=== PATIENT | female | born 1935 | race Asian ===

== ENCOUNTER 2016-06-03 22:24 | Emergency (ER) | payer MEDICARE, OTHER ==
[~2016-06-03] VITALS: Ht 152.4 cm; Wt 50.0 kg
[~2016-06-03 22:24] MED LIST: AMLO-511 PO; ASPI81 PO; ATOR20TA86 PO; CALC500T62 PO; GABA-531 PO; ISOS30TA6 PO; LOSA25TA21 PO; MECL12.585 PO; MULT-1251 PO; NITR.4 SL; OMEP20 PO; RISE5 PO
[2016-06-03] MEDS ORDERED: METO25 PO (23:07)
[2016-06-03] MEDS ORDERED: BRIM15OS OU (23:07)
[2016-06-03] MEDS ORDERED: MOXIOS OU (23:07)
[2016-06-03] MEDS ORDERED: PREDAOS OU (23:07)
[2016-06-03 23:40] LABS: BASOPHILS % (AUTO) 0.6 % (0.0-2.0); EOSINOPHILS % (AUTO) 2.9 % (1.0-6.0); HEMATOCRIT 35.3 % (36-46); HEMOGLOBIN 11.6 g/dL (12.0-16.0); LYMPHOCYTES # (AUTO) 2.2 K/uL (1.0-4.8); LYMPHOCYTES % (AUTO) 26.2 % (22.0-44.0); MEAN CORPUSCULAR HEMOGLOBIN 31.6 pg (26.0-34.0); MEAN CORPUSCULAR HGB CONC 32.9 G/dL (31.0-37.0); MEAN CORPUSCULAR VOLUME 96 fL (80-100); MONOCYTES # (AUTO) 0.6 K/uL (0.1-1.0); MONOCYTES % (AUTO) 7.5 % (2.0-9.0); NEUTROPHILS # (AUTO) 5.2 K/uL (1.8-7.7); NEUTROPHILS % (AUTO) 62.8 % (40.0-70.0); PLATELET COUNT (AUTO) 133 K/uL (150-450); RED BLOOD CELL COUNT(AUTO) 3.66 MIL/uL (4.00-5.20); RED CELL DISTRIBUTION WIDTH 12.7 % (11.5-14.5); WHITE BLOOD COUNT (AUTO) 8.3 K/uL (4.5-11.0)
[2016-06-03 23:59] LABS: CREATININE 1.07 mg/dL (0.60-1.30); POTASSIUM 3.6 mmol/L (3.5-5.1)
[2016-06-04 00:05] LABS: BILIRUBIN,TOTAL 0.4 mg/dL (0.1-1.0); TOTAL PROTEIN, SERUM 7.6 g/dL (6.4-8.2)
[2016-06-04 00:48] LABS: APPEARANCE,URINE CLEAR (CLEAR); GLUCOSE, URINE (UA) NEGATIVE (NEGATIVE); KETONES,URINE NEGATIVE (NEGATIVE); LEUKOCYTE ESTERASE ,URINE TRACE (NEGATIVE); OCCULT BLOOD,URINE SMALL (NEGATIVE); PH,URINE 5.5 (5.0-8.0); PROTEIN,URINE NEGATIVE (NEGATIVE)
[2016-06-04 01:02] LABS: ADD UA MICROSCOPIC YES
[2016-06-04 01:14] LABS: SQUAMOUS EPITHELIAL CELL,UR Rare /LPF (None Seen)
[2016-06-04] MEDS ORDERED: ONDANSETRON HCL 4 MG/2 ML VIAL IM ONE (01:15)
[2016-06-04] MEDS ORDERED: ACETAMINOPHEN 500 MG TABLET PO ONE (01:15)
[2016-06-04] MEDS ORDERED: MECLIZINE HCL 25 MG TABLET PO ONE (01:15)
[2016-06-04 01:45] VITALS: BP 135/86
== END 2016-06-04 02:12 | disposition home or self-care (01) ==
LOC: EMS 22:28
DX: R42 Dizziness and giddiness (principal); I10 Essential (primary) hypertension; E78.00 Pure hypercholesterolemia, unspecified; Z79.82 Long term (current) use of aspirin
CPT/HCPCS: 36415; 71010; 80053; 81001; 81003; 83880; 84484; 85025; 93005; 99285; J2405

== ENCOUNTER → 2016-06-30 | Outpatient (CLI) | payer MEDICARE, OTHER ==
[~2016-06-30] MED LIST changes: +AMINOPHYLLINE 25 MG/ML 10 ML VIAL IVP ONE; +BRIM15OS OU; -GABA-531 PO; -ISOS30TA6 PO; -LOSA25TA21 PO; -MECL12.585 PO; +METO25 PO; +MOXIOS OU; -OMEP20 PO; +PREDAOS OU; +REGADENOSON 0.4 MG/5 ML PF SYRINGE IVP ONE; -RISE5 PO; +SESTAMIBI TC99M/UD ISOTOPE 1 EA INJ INJ ONE
[2016-06-30 11:00] VITALS: BP 125/53
[2016-06-30 12:00] VITALS: BP 128/57
== END | disposition home or self-care (01) ==
LOC: CARDMN 10:31
PROVIDERS: ATTEND Internal Medicine
DX: I25.10 Atherosclerotic heart disease of native coronary artery without angina pectoris (principal); I20.9 Angina pectoris, unspecified; I25.9 Chronic ischemic heart disease, unspecified
CPT/HCPCS: 78452; 93017; A9500; J0280; J2785

== ENCOUNTER 2018-08-04 12:44 | Emergency (ER) | payer MEDICARE, OTHER ==
[~2018-08-04] VITALS: Ht 147.3 cm; Wt 55.3 kg
[~2018-08-04 12:44] MED LIST changes: -AMINOPHYLLINE 25 MG/ML 10 ML VIAL IVP ONE; -REGADENOSON 0.4 MG/5 ML PF SYRINGE IVP ONE; -SESTAMIBI TC99M/UD ISOTOPE 1 EA INJ INJ ONE
[2018-08-04 13:33] LABS: BASOPHILS % (AUTO) 0.2 % (0.0-2.0); HEMATOCRIT 35.7 % (36-46); HEMOGLOBIN 11.7 g/dL (12.0-16.0); LYMPHOCYTES # (AUTO) 0.6 K/uL (1.0-4.8); LYMPHOCYTES % (AUTO) 5.8 % (22.0-44.0); MEAN CORPUSCULAR HGB CONC 32.9 G/dL (31.0-37.0); MEAN CORPUSCULAR VOLUME 97 fL (80-100); MONOCYTES # (AUTO) 0.6 K/uL (0.1-1.0); MONOCYTES % (AUTO) 6.2 % (2.0-9.0); NEUTROPHILS # (AUTO) 8.9 K/uL (1.8-7.7); PLATELET COUNT (AUTO) 107 K/uL (150-450); RED BLOOD CELL COUNT(AUTO) 3.67 MIL/uL (4.00-5.20); RED CELL DISTRIBUTION WIDTH 12.7 % (11.5-14.5)
[2018-08-04 13:35] LABS: NEUTROPHILS % (AUTO) 86.8 % (40.0-70.0)
[2018-08-04 13:53] LABS: CALCIUM, TOTAL 9.1 mg/dL (8.8-10.5); CREATININE 1.12 mg/dL (0.60-1.30); POTASSIUM 4.3 mmol/L (3.5-5.1)
[2018-08-04 14:17] LABS: ALBUMIN 3.6 g/dL (3.4-5.0); BILIRUBIN,TOTAL 0.9 mg/dL (0.1-1.0); TOTAL PROTEIN, SERUM 7.3 g/dL (6.4-8.2)
[2018-08-04 15:06] VITALS: BP 126/68
== END 2018-08-04 15:19 | disposition home or self-care (01) ==
LOC: EMS 12:45
DX: R42 Dizziness and giddiness (principal); I10 Essential (primary) hypertension; E78.00 Pure hypercholesterolemia, unspecified; Z79.82 Long term (current) use of aspirin; Z79.899 Other long term (current) drug therapy
CPT/HCPCS: 93005